=== PATIENT | male | born 1955 | race Caucasian/White ===

== ENCOUNTER 2020-06-01 00:25 | Outpatient (CLI) | payer BC, SELFPAY ==
[2020-06-01 19:01] LABS: SARS-CoV-2 RNA PCR Negative
== END 2020-06-01 00:26 | disposition home or self-care (01) ==
LOC: ANHCOVIDDT 00:25
PROVIDERS: Visit Provider Internal Medicine Gastroenterology
DX: Z01.812 Encounter for preprocedural laboratory examination (principal); Z20.828 Contact with and (suspected) exposure to other viral communicable diseases
CPT/HCPCS: 87635; C9803; U0003

== ENCOUNTER 2020-06-03 00:41 | Day surgery (SDC) | payer BC, SELFPAY ==
[2020-05-31 10:14] VITALS: BMI 31.6
[2020-06-03 06:48] VITALS: BP 135/83; PULSE 88; RESP 20; TEMP 36.4; O2SAT 98; BMI 31.8
--- NOTE | 2020-06-03 06:52 | PM.HPGS ---
History of Present Illness History of Present Illness Consent: Risks, benefits, and alternatives have been discussed and questions answered. Patient agrees to proceed with procedure. Chief complaint: Hx Of Polyps Narrative: Adolfo Sims is a 64 year old W male Referred for screening colonoscopy secondary history of colonic polyps. No family history of colon cancer. Last colonoscopy was 3 years ago. There been no interval changes in the patient's health. [facility] Past Medical History Medical History (Updated 06/03/20 @ 06:56 by Russell Mejia MD) Coronary artery disease involving autologous artery coronary bypass graft Diabetes mellitus Dyslipidemia GERD (gastroesophageal reflux disease) Hypertension Social History Social History Smoking packs per day: 1 Smoking cigarettes per day: 20.0 Years smoked: 20 Smoking pack-years: 20.00 Smoking status: Former smoker Tobacco type: cigarettes Alcohol intake: never Substance use: never Substance use type: does not use Living arrangements: with family Gender identity (if verbalized by the patient): Male Spiritual care concerns: No Meds Home Medications and Allergies Home Medications Medication Instructions Recorded Confirmed Type aspirin 325 mg PO DAILY 05/31/20 05/31/20 History cholecalciferol (vitamin D3) 125 mcg PO DAILY 05/31/20 05/31/20 History [Vitamin D3] fish [id number]-9-vit C-vit E 2 g PO DAILY 05/31/20 05/31/20 History insulin aspart (niacinamide) 10 unit SUBCUT TID 05/31/20 05/31/20 History [Fiasp FlexTouch U-100 Insulin] insulin degludec [Tresiba 25 unit SUBCUT DAILY 05/31/20 05/31/20 History FlexTouch U-100] levothyroxine [Synthroid] 137 mcg PO DAILY 05/31/20 05/31/20 History lisinopril-hydrochlorothiazide 1 tablet PO BID 05/31/20 05/31/20 History metoprolol succinate 200 mg PO DAILY 05/31/20 05/31/20 History semaglutide [Ozempic] 0.25 mg SUBCUT WEEKLY 05/31/20 05/31/20 History simvastatin 40 mg PO DAILY 05/31/20 05/31/20 History Allergies Allergy/AdvReac Type Severity Reaction Status Date / Time Penicillins Allergy Severe Swelling Verified 06/03/20 06:45 Sulfa (Sulfonamide Allergy Severe Swelling Verified 06/03/20 06:46 Antibiotics) Vital Signs Vital Signs - 24 hr 06/03/20 06:48 Temperature 36.4 C Pulse Rate 88 Respiratory Rate 20 Blood Pressure 135/83 Pulse Oximetry 98 Exam Const: Orientation/consciousness: patient oriented x3 Resp: Auscultation: clear to auscultation bilaterally Cardio: Rate: regular rate Rhythm: regular rhythm Heart sounds: no murmurs GI: GI Palp: Yes Soft to palpation, No Tenderness to palpation present (GI), Yes No hepatosplenomegaly present and No Palpable mass present Auscultation: normal bowel sounds Neuro: General: patient oriented x3 and no focal motor deficits Extrem: General: no pedal edema Assessment and Plan Additional Plan screening colonoscopy secondary history of colonic polyps
[2020-06-03 07:05] LABS: Glucose Point of Care 137 (65-105)
--- NOTE | 2020-06-03 07:07 | WPDANESEPPF ---
Anes - Initial Pre Proc Eval Procedure: Operation Date: 06/03/20 07:30 Proposed Procedures p Screening Colonoscopy - Russell Mejia MD Date/Time: 06/03/20 07:07 Surgeon: Russell Mejia MD Pre Op Diagnosis: Hx Of Polyps Patient Data Age: 64 Gender: M Height: 5 ft 4 in Weight: 84.3 kg Last Vital Signs Temp 36.4 C 06/03/20 06:48 Pulse 88 06/03/20 06:48 Resp 20 06/03/20 06:48 BP 135/83 06/03/20 06:48 Pulse Ox 98 06/03/20 06:48 Allergies Allergy/AdvReac Type Severity Reaction Status Date / Time Penicillins Allergy Severe Swelling Verified 06/03/20 06:45 Sulfa (Sulfonamide Allergy Severe Swelling Verified 06/03/20 06:46 Antibiotics) Home Medications Medication Instructions Recorded Confirmed Type aspirin 325 mg PO DAILY 05/31/20 05/31/20 History cholecalciferol (vitamin D3) 125 mcg PO DAILY 05/31/20 05/31/20 History [Vitamin D3] fish rwv-aewnt-5-vit C-vit E 2 g PO DAILY 05/31/20 05/31/20 History insulin aspart (niacinamide) 10 unit SUBCUT TID 05/31/20 05/31/20 History [Fiasp FlexTouch U-100 Insulin] insulin degludec [Tresiba 25 unit SUBCUT DAILY 05/31/20 05/31/20 History FlexTouch U-100] levothyroxine [Synthroid] 137 mcg PO DAILY 05/31/20 05/31/20 History lisinopril-hydrochlorothiazide 1 tablet PO BID 05/31/20 05/31/20 History metoprolol succinate 200 mg PO DAILY 05/31/20 05/31/20 History semaglutide [Ozempic] 0.25 mg SUBCUT WEEKLY 05/31/20 05/31/20 History simvastatin 40 mg PO DAILY 05/31/20 05/31/20 History Laboratory Tests 06/03/20 07:00 POC Capillary Glucose 137 mg/dl H mg/dl (65-105) Patient hx anesthesia problems: none Family hx anesthesia problems: none PMFSH Past Medical History Medical History Coronary artery disease involving autologous artery coronary bypass graft Diabetes mellitus Dyslipidemia GERD (gastroesophageal reflux disease) Hypertension Surgical History Surgical History (Updated 06/03/20 @ 07:08 by Haroon Randall MD) Hx of CABG Social History Social History Smoking packs per day: 1 Smoking cigarettes per day: 20.0 Years smoked: 20 Smoking pack-years: 20.00 Smoking status: Former smoker Tobacco type: cigarettes Alcohol intake: never Substance use: never Substance use type: does not use Living arrangements: with family Gender identity (if verbalized by the patient): Male Spiritual care concerns: No Anes - Eval Final PreProcedure Day of Procedure 06/03/20 07:07 Patient weight: obese Heart: regular rate and rhythm Lungs: clear to auscultation Airway: Mallampati scale class II Neurological: alert and oriented Last oral intake: >/= 8 hours ASA classification: III Emergent: no Anesthetic plan: proceed Anesthesia type and monitoring: general GIVS and standard monitoring Informed Consent: The patient's anesthetic plan and its attendant risks and benefits were discussed with the patient/family/POA. Questions were solicited and answers provided to the satisfaction of the patient/family/POA.
[2020-06-03] MEDS: LACTATED RINGERS 1,000 ML 150 ML IV CONT (07:08)
[2020-06-03 07:50] VITALS: BP 109/55; PULSE 96; RESP 16; O2SAT 99
[2020-06-03 08:00] VITALS: BP 121/69; PULSE 72; RESP 17; O2SAT 100
[2020-06-03 08:10] VITALS: BP 121/69; PULSE 78; RESP 24; O2SAT 99
[2020-06-03 08:30] LABS: Glucose Point of Care 123 (65-105)
== END 2020-06-03 08:34 | disposition home or self-care (01) ==
PROVIDERS: Visit Provider Internal Medicine Gastroenterology
PROC: 0DJD8ZZ Inspection of Lower Intestinal Tract, Via Natural or Artificial Opening Endoscopic (ICD-10-PCS; CPT 45378; principal; 2020-06-03 07:30)
DX: Z12.11 Encounter for screening for malignant neoplasm of colon (principal); D12.5 Benign neoplasm of sigmoid colon; E11.9 Type 2 diabetes mellitus without complications; I10 Essential (primary) hypertension; I25.810 Atherosclerosis of coronary artery bypass graft(s) without angina pectoris; E78.5 Hyperlipidemia, unspecified; K21.9 Gastro-esophageal reflux disease without esophagitis; Z95.1 Presence of aortocoronary bypass graft; Z79.82 Long term (current) use of aspirin; Z79.4 Long term (current) use of insulin; Z87.891 Personal history of nicotine dependence; E66.9 Obesity, unspecified; Z68.31 Body mass index [BMI] 31.0-31.9, adult
CPT/HCPCS: 45385; 88305; J2405; J2704; J7120

== ENCOUNTER 2024-08-15 13:21 | Emergency (ER) | payer MEDICARE, SELFPAY ==
[2024-08-15 13:50] VITALS: BP 175/93; PULSE 78; RESP 18; TEMP 36.5; O2SAT 97
[2024-08-15 14:17] LABS: Add Urine Microscopic? NO; Appearance Urine Clear (Clear); Bilirubin Urine Negative (Negative); Blood Urine Negative (Negative); Color Urine Yellow (Yellow); Glucose Urine UA Negative (Negative); Ketones Urine Negative (Negative); Leukocyte Esterase Ur Negative LEU/UL (Negative); Nitrate Urine Negative (Negative); Protein Urine Negative (Negative); Specific Grav Ur 1.007 (1.001-1.035)
--- NOTE | 2024-08-15 14:31 | ED.MALEGU ---
HPI - Male Genitourinary General Chief complaint: Urogenital-Male Stated complaint: unable to urinate Time Seen by Provider: 08/15/24 13:57 Source: patient and family Mode of arrival: ambulatory Limitations: no limitations History of Present Illness HPI Narrative: 69-year-old with a history of hypertension hyperlipidemia, BPH, diabetes here with the complaints of unable to urinate for the last few hours. Patient states that he was having significant amount of lower abdominal pain which started few hours ago. He denies any nausea or vomiting. She no new medication or recent surgical procedures. He states that he follows with Dr. Rivera urology in [facility] , Denies any fever or chills. MD Complaint: other ( Unable to urinate) Onset (ago): hour(s) (6) Duration: constant Severity: moderate Associated symptoms: Reports denies other symptoms Related Data Home Medications ?Medication ?Instructions ?Recorded ?Confirmed ?Last Taken ?Type aspirin 325 mg tablet 325 mg PO DAILY 05/31/20 05/31/20 06/02/20 20:00 History cholecalciferol (vitamin D3) 125 125 mcg PO DAILY 05/31/20 05/31/20 06/02/20 20:00 History mcg (5,000 unit) tablet (Vitamin D3) fish skm--iqj C-vit E 2,000 2 g PO DAILY 05/31/20 05/31/20 06/02/20 20:00 History mg-650 mg-12 mg/2.5 g emulsion packt insulin aspart 10 unit subcut TID 05/31/20 05/31/20 06/02/20 20:00 History (niacinamide)(U-100) 100 unit/mL(3 mL) subcutaneous pen (Fiasp FlexTouch U-100 Insulin) insulin degludec 100 unit/mL (3 25 unit subcut DAILY 05/31/20 05/31/20 06/02/20 20:00 History mL) subcutaneous pen (Tresiba FlexTouch U-100 insulin) levothyroxine 137 mcg tablet 137 mcg PO DAILY 05/31/20 05/31/20 06/02/20 20:00 History (Synthroid) lisinopril 20 1 tablet PO BID 05/31/20 05/31/20 06/02/20 20:00 History mg-hydrochlorothiazide 25 mg tablet metoprolol succinate 200 mg 200 mg PO DAILY 05/31/20 05/31/20 06/02/20 20:00 History tablet,extended release 24 hr semaglutide 0.25 mg or 0.5 mg (2 0.25 mg subcut WEEKLY 05/31/20 05/31/20 06/02/20 20:00 History mg/1.5 mL) subcutaneous pen injector (Ozempic) simvastatin 40 mg tablet 40 mg PO DAILY 05/31/20 05/31/20 06/02/20 20:00 History Allergies Allergy/AdvReac Type Severity Reaction Status Date / Time Penicillins Allergy Severe Swelling Verified 08/15/24 13:59 Sulfa (Sulfonamide Allergy Severe Swelling Verified 08/15/24 13:59 Antibiotics) Review of Systems Review of Systems: All systems reviewed & are unremarkable except as noted in HPI and below Constitutional: Constitutional: Reports no additional constitutional complaints Eyes: Eyes: Reports no additional eye complaints ENT: Reports system reviewed and no additional complaints, except as documented Cardiovascular: Cardiovascular: Reports no additional cardiovascular complaints Respiratory: Respiratory: Reports no additional respiratory complaints Gastrointestinal: Gastrointestinal: Reports as per HPI Genitourinary: Genitourinary: Reports as per HPI Musculoskeletal: Musculoskeletal: Reports no additional musculoskeletal complaints Neurologic: Reports system reviewed and no additional complaints, except as documented PMFSH Past Medical History Medical History Diabetes mellitus Coronary artery disease involving autologous artery coronary bypass graft Hypertension Dyslipidemia GERD (gastroesophageal reflux disease) Surgical History Surgical History Hx of CABG Social History Social History Smoking packs per day: 1 Smoking cigarettes per day: 20.0 Years smoked: 20 Smoking pack-years: 20.00 Smoking status: Former smoker Tobacco type: cigarettes Alcohol intake: never Substance use: never Substance use type: does not use Living arrangements: with family Gender identity (if verbalized by the patient): Male Spiritual care concerns: No Exam Narrative: GENERAL: Well-appearing, well-nourished, and in no acute distress. HEAD: Normocephalic, atraumatic. EYES: PERRLA and EOMI. ENT: Nares clear, no rhinorrhea or epistaxis. Mucous membranes moist. NECK: Supple. CHEST: Clear to auscultation. No respiratory distress. HEART: Regular rate and rhythm. No murmur heard. Normal peripheral pulses. ABDOMEN: Soft, nontender, nondistended, normal active bowel sounds. EXTREMITIES: Normal range of motion. No edema. SKIN: Warm, dry, no rash. NEURO: No focal deficits. Alert and oriented x3. PSYCH: Normal mood and affect. Course Course Emergency Course: Cruz catheter was placed upon arrival. He is feeling much better that this about 600-700 mL of clear urine in his for catheter bag. He is feeling much better. Did inform him to keep the catheter in for at least 48 hours call his urologist on Sunday for a follow-up. Vital Signs Vital signs: Vital Signs Temperature 36.5 C 08/15/24 13:50 Pulse Rate 78 08/15/24 13:50 Respiratory Rate 18 08/15/24 13:50 Blood Pressure 175/93 H 08/15/24 13:50 Pulse Oximetry 97 08/15/24 13:50 Oxygen Delivery Room Air 08/15/24 13:50 Temperature 36.5 C 08/15/24 13:50 Pulse Rate 78 08/15/24 13:50 Respiratory Rate 18 08/15/24 13:50 Blood Pressure 175/93 H 08/15/24 13:50 Pulse Oximetry 97 08/15/24 13:50 Oxygen Delivery Room Air 08/15/24 13:50 MDM - Male Genitourinary Lab Data Labs: Lab Results 08/15/24 Range/Units 14:06 Urine Color Yellow (Yellow) Urine Appearance Clear (Clear) Urine pH 7.0 (5.0-9.0) Ur Specific Frederica 1.007 (1.001-1.035) Urine Protein Negative (Negative) mg/dL Urine Glucose (UA) Negative (Negative) mg/dL Urine Ketones Negative (Negative) mg/dL Ur Blood (Man) Negative (Negative) Urine Nitrate Negative (Negative) Urine Bilirubin Negative (Negative) Urine Urobilinogen 1.0 (<2.0) mg/dL Leukocyte Esterase Rfl Negative (Negative) YUMIKO/UL Discharge Plan Discharge Clinical Impression: Acute urinary retention Patient Disposition: Home, Self-Care Condition: Stable Instructions: Urinary Retention in Men (ED) Additional Instructions: continue home medications. Being more fluids as tolerated call your urologist on Sunday for a follow-up appointment. Patient Language: Czech Prescriptions: No Action levothyroxine [Synthroid] 137 mcg tablet 137 mcg PO DAILY aspirin 325 mg Tablet 325 mg PO DAILY metoprolol succinate 200 mg tablet extended release 24 hr 200 mg PO DAILY simvastatin 40 mg tablet 40 mg PO DAILY fish jtb-tvcmy-9-vit C-vit E 2,000-650-12 mg/2.5 gram Emulsion In Packet 2 g PO DAILY lisinopril-hydrochlorothiazide 20-25 mg tablet 1 tablet PO BID cholecalciferol (vitamin D3) [Vitamin D3] 125 mcg (5,000 unit) Tablet 125 mcg PO DAILY Tresiba FlexTouch U-100 100 unit/mL (3 mL) insulin pen 25 unit SUBCUT DAILY Fiasp FlexTouch U-100 Insulin 100 unit/mL (3 mL) insulin pen 10 unit SUBCUT TID Ozempic 0.25 mg or 0.5 mg(2 mg/1.5 mL) pen injector 0.25 mg SUBCUT WEEKLY Follow-up/Referrals: PHYSICIAN NOT ON STAFF,NONSTAFF [Primary Care Provider] - Ronal Aguirre MD [Physician] - Time of Disposition: 14:39
[2024-08-15 15:19] VITALS: BP 125/88; PULSE 78; RESP 16; TEMP 36.6; O2SAT 96
== END 2024-08-15 15:21 | disposition home or self-care (01) ==
LOC: ANHED 14:49
PROVIDERS: Emergency Medicine; Emergency Provider Family Medicine
DX: R33.9 Retention of urine, unspecified (principal); I10 Essential (primary) hypertension; E78.5 Hyperlipidemia, unspecified; E11.9 Type 2 diabetes mellitus without complications; Z79.4 Long term (current) use of insulin; Z79.82 Long term (current) use of aspirin; I25.10 Atherosclerotic heart disease of native coronary artery without angina pectoris; K21.9 Gastro-esophageal reflux disease without esophagitis; Z87.891 Personal history of nicotine dependence
CPT/HCPCS: 51702; 81003; 99283